=== PATIENT | female | born 1995 | race Caucasian/White ===

== ENCOUNTER 2017-09-14 08:10 | Inpatient (IN) | payer OTHER ==
[2017-09-14] MEDS ORDERED: OXYTOCIN 30 UNITS/LR 500 ML IV (09:00)
[2017-09-14] MEDS ORDERED: CARBOPROST 250 MCG INJ IM (09:00)
[2017-09-14] MEDS ORDERED: MISOPROSTOL 200 MCG TAB PR (09:00)
[2017-09-14] MEDS ORDERED: METHYLERGONOVINE 0.2 MG INJ IM (09:00)
[2017-09-14 09:30] LABS: ADD MAN DIFF? NO
[2017-09-14] MEDS: LACTATED RINGER'S 1,000 ML IV ×3 (09:30→22:16)
[2017-09-14 09:37] LABS: BASOPHILS % 0.4 % (0.0-2.0); EOSINOPHILS % 0.6 % (0.0-7.0); HEMATOCRIT 32.2 % (37.0-47.0); HEMOGLOBIN 11.2 g/dl (12.0-16.0); LYMPHOCYTES # 1.8 10^3/ul (0.8-2.9); LYMPHOCYTES % 35.3 % (15.0-51.0); MEAN CORPUSCULAR HGB CONC 34.8 g/dl (32.0-37.0); MEAN CORPUSCULAR VOLUME 83.4 fl (82.0-101.0); MONOCYTE # 0.4 10^3/ul (0.3-0.9); MONOCYTES % 7.4 % (0.0-11.0); NEUTROPHIL # 2.9 10^3/ul (1.6-7.5); NEUTROPHILS % 55.5 % (39.0-77.0); PLATELET COUNT 203 10^3/UL (140-415); RED BLOOD COUNT 3.86 10^6/ul (4.20-5.40); RED CELL DISTRIBUTION WIDTH 13.4 % (11.5-14.5)
[2017-09-14 09:37] LABS: WHITE BLOOD COUNT 5.1 10^3/ul (4.8-10.8)
[2017-09-14 10:08] LABS: PROTIME 12.2 Sec (11.9-14.9)
[2017-09-14 10:08] LABS: URIC ACID 3.7 mg/dl (3.1-7.9)
[2017-09-14 10:09] LABS: PARTIAL THROMBOPLASTIN TIME 24.3 Sec (25.0-35.0)
[2017-09-14 10:24] LABS: ALANINE AMINOTRANSFERASE 26 IU/L (13-69); ALBUMIN 3.8 g/dl (3.3-4.9); ALBUMIN/GLOBULIN RATIO 1.15; ALKALINE PHOSPHATASE 204 IU/L (42-121); ANION GAP 16 (8-16); ASPARTATE AMINO TRANSFERASE 21 IU/L (15-46); BILIRUBIN,INDIRECT 0.1 mg/dl (0-1.1); BILIRUBIN,TOTAL 0.1 mg/dl (0.2-1.3); BLOOD UREA NITROGEN 9 mg/dl (7-20); CALCIUM 9.1 mg/dl (8.4-10.2); CARBON DIOXIDE 20 mmol/L (21-31); CHLORIDE 106 mmol/L (97-110); GLUCOSE 86 mg/dl (70-220); POTASSIUM 4.2 mmol/L (3.5-5.1); SODIUM 138 mmol/L (135-144); TOTAL PROTEIN 7.1 g/dl (6.1-8.1)
[2017-09-14 10:54] LABS: ADD UMIC NO; UR ASCORBIC ACID NEGATIVE (NEGATIVE); UR BACTERIA FEW /HPF (NONE SEEN); UR BILIRUBIN (Dip) NEGATIVE (NEGATIVE); UR BLOOD (Dip) NEGATIVE (NEGATIVE); UR CLARITY SLIGHTLY CLOUDY (CLEAR); UR COLOR STRAW (YELLOW); UR GLUCOSE (Dip) NEGATIVE (NEGATIVE); UR KETONES (Dip) NEGATIVE (NEGATIVE); UR LEUKOCYTE ESTERASE (Dip) NEGATIVE Leu/ul (NEGATIVE); UR NITRITE (Dip) NEGATIVE (NEGATIVE); UR RBC 1 /HPF (0-5); UR SPECIFIC GRAVITY (Dip) 1.013 (1.003-1.030); UR SQUAMOUS EPITHELIAL CELL FEW /HPF (FEW); UR TOTAL PROTEIN (Dip) NEGATIVE (NEGATIVE); UR UROBILINOGEN (Dip) NEGATIVE (NEGATIVE); UR WBC 2 /HPF (0-5)
[2017-09-14] MEDS: OXYTOCIN 30 UNITS/LR 500 ML IV (11:14)
[2017-09-14 21:22] LABS: RAPID PLASMA REAGIN NONREACTIVE (NR)
[2017-09-15] MEDS: BUTORPHANOL 2 MG INJ IV (00:36)
[2017-09-15] MEDS: LACTATED RINGER'S 1,000 ML IV ×2 (02:28→10:03)
[2017-09-15] MEDS ORDERED: FENTAnyl 2MCG/ML-ROPIV 0.2% 100 ML (02:38)
[2017-09-15] MEDS ORDERED: NALOXONE (0.4 MG/ML) INJ IV (05:30)
[2017-09-15] MEDS: LACTATED RINGER'S 500 ML IV (07:30)
[2017-09-15] MEDS: FENTAnyl 2MCG/ML-ROPIV 0.2% 100 ML BAG EPI ×2 (07:38→11:11)
[2017-09-15] MEDS: ONDANSETRON 4 MG INJ IV (11:06)
[2017-09-15] MEDS: OXYTOCIN 30 UNITS/LR 500 ML IV ×3 (14:16→18:46)
[2017-09-15] MEDS: LIDOCAINE 1% (MPF) 30 ML INJ INJ (14:26)
[2017-09-15] MEDS ORDERED: MISOPROSTOL 200 MCG TAB PR (16:00)
[2017-09-15] MEDS ORDERED: OXYTOCIN 30 UNITS/LR 500 ML IV (16:00)
[2017-09-15] MEDS ORDERED: CARBOPROST 250 MCG INJ IM (16:00)
[2017-09-15] MEDS ORDERED: ZOLPIDEM 5 MG TAB PO (16:00)
[2017-09-15] MEDS ORDERED: METHYLERGONOVINE 0.2 MG INJ IM (16:00)
[2017-09-15] MEDS ORDERED: SENNA/DOCUSATE NA (8.6MG/50MG) TAB PO (16:00)
[2017-09-15] MEDS ORDERED: LANOLIN 7 GM TUBE TOP (16:00)
[2017-09-15] MEDS: BENZOCAINE 20% 56 ML SPRAY TOP (17:31)
[2017-09-15] MEDS: IBUPROFEN 600 MG TAB PO ×2 (17:31→23:51)
[2017-09-15] MEDS: WITCH HAZEL/GLYCERIN PAD PR (17:31)
[2017-09-15] MEDS: OXYCODONE/ASPIRIN (4.88/325) TAB PO (18:43)
[2017-09-15] MEDS: SENNA/DOCUSATE NA (8.6MG/50MG) TAB PO (21:10)
[2017-09-16] MEDS: IBUPROFEN 600 MG TAB PO ×4 (05:53→23:33)
[2017-09-16] MEDS: OXYCODONE/ASPIRIN (4.88/325) TAB PO (08:40)
[2017-09-16] MEDS: SENNA/DOCUSATE NA (8.6MG/50MG) TAB PO ×2 (08:41→21:08)
[2017-09-16 09:54] LABS: ADD MAN DIFF? NO
[2017-09-16 10:00] LABS: BASOPHILS % 0.2 % (0.0-2.0); EOSINOPHILS % 0.1 % (0.0-7.0); HEMATOCRIT 25.9 % (37.0-47.0); HEMOGLOBIN 8.9 g/dl (12.0-16.0); LYMPHOCYTES # 1.4 10^3/ul (0.8-2.9); LYMPHOCYTES % 12.6 % (15.0-51.0); MEAN CORPUSCULAR HGB CONC 34.4 g/dl (32.0-37.0); MEAN CORPUSCULAR VOLUME 84.4 fl (82.0-101.0); MEAN PLATELET VOLUME 11.1 fl (7.4-10.4); MONOCYTE # 0.8 10^3/ul (0.3-0.9); NEUTROPHIL # 8.8 10^3/ul (1.6-7.5); NEUTROPHILS % 79.6 % (39.0-77.0); PLATELET COUNT 167 10^3/UL (140-415); RED BLOOD COUNT 3.07 10^6/ul (4.20-5.40); RED CELL DISTRIBUTION WIDTH 13.6 % (11.5-14.5)
[2017-09-16 10:00] LABS: WHITE BLOOD COUNT 11.1 10^3/ul (4.8-10.8)
[2017-09-17] MEDS: IBUPROFEN 600 MG TAB PO ×2 (06:13→11:36)
[2017-09-17] MEDS: SENNA/DOCUSATE NA (8.6MG/50MG) TAB PO (10:08)
[2017-09-17] MEDS: DIPHTH/TET/ACEL PERTUSS (ADULT) 0.5 ML VIAL IM* (10:09)
== END 2017-09-17 13:41 | disposition home or self-care (01) | DRG 775 ==
LOC: L-D 08:10 → PP1 09-15 16:26
PROC: 10E0XZZ Delivery of Products of Conception, External Approach (ICD-10-PCS; principal; 2017-09-15)
PROC: 3E033VJ Introduction of Other Hormone into Peripheral Vein, Percutaneous Approach (ICD-10-PCS; 2017-09-15)
DX: O48.0 Post-term pregnancy (principal); O69.81X0 Labor and delivery complicated by cord around neck, without compression, not applicable or unspecified; Z3A.40 40 weeks gestation of pregnancy; Z37.0 Single live birth
CPT/HCPCS: 62319; 76815; 76818; 80053; 81001; 81003; 84560; 85025; 85610; 85730; 86592; 86900; 86901; 90715; 99464